=== PATIENT | female | born 1985 | race Caucasian/White ===

== ENCOUNTER 2018-11-07 19:56 | Inpatient (IN) | payer OTHER ==
[~2018-11-07] VITALS: Ht 157.5 cm; Wt 70.3 kg
[2018-11-08] MEDS ORDERED: GLYCOTROL CAPS1 EACH SL (10:21)
== END 2018-11-10 14:33 | disposition home or self-care (01) | DRG 621 ==
LOC: SURH 11-08 08:30 → O/R 11-09 04:50 → SURH 11-09 18:23
PROVIDERS: ADMIT Plastic Surgery
PROC: 0J080ZZ Alteration of Abdomen Subcutaneous Tissue and Fascia, Open Approach (ICD-10-PCS; 2018-11-09)
PROC: 0H0V0ZZ Alteration of Bilateral Breast, Open Approach (ICD-10-PCS; 2018-11-09)
PROC: 0HX5XZZ Transfer Chest Skin, External Approach (ICD-10-PCS; principal; 2018-11-09 07:15)
DX: E65 Localized adiposity (principal); N62 Hypertrophy of breast; E66.01 Morbid (severe) obesity due to excess calories; M62.08 Separation of muscle (nontraumatic), other site; Z98.84 Bariatric surgery status

== ENCOUNTER 2019-11-15 07:56 | Day surgery (SDC) | payer OTHER ==
[~2019-11-15 07:56] MED LIST: GLYCOTROL CAPS1 EACH SL
== END 2019-11-15 21:55 | disposition home or self-care (01) ==
LOC: CIR.AMB 07:56
PROVIDERS: ATTEND Plastic Surgery
DX: L98.7 Excessive and redundant skin and subcutaneous tissue (principal); Z20.828 Contact with and (suspected) exposure to other viral communicable diseases